=== PATIENT | male | born 1995 | race Caucasian/White ===

== ENCOUNTER 2022-07-05 23:19 | Emergency (ER) | payer MEDICAID ==
[~2022-07-05] VITALS: Ht 163.8 cm; Wt 74.6 kg
[2022-07-05 23:40] VITALS: BP 124/73
[2022-07-06] MEDS ORDERED: IBUPROFEN 600MG TABLET PO STA (03:06)
[2022-07-06] MEDS ORDERED: SILVER SULFADIAZINE 1% CREAM 25GM TOP ONE (03:15)
[2022-07-06] MEDS ORDERED: SILV50CR31 TP (03:58)
[2022-07-06] MEDS ORDERED: IBUP-2029 PO (03:58)
== END 2022-07-06 04:18 | disposition home or self-care (01) ==
LOC: ER 23:19
DX: T25.222A Burn of second degree of left foot, initial encounter (principal); T31.0 Burns involving less than 10% of body surface; X11.8XXA Contact with other hot tap-water, initial encounter; Y93.89 Activity, other specified; Y92.89 Other specified places as the place of occurrence of the external cause; Y99.8 Other external cause status
CPT/HCPCS: 99283